=== PATIENT | female | born 1965 | race Caucasian/White ===

== ENCOUNTER 2022-09-05 13:00 | Inpatient (IN) | payer MEDICAID ==
[~2022-09-05] VITALS: Ht 153.7 cm; Wt 68.2 kg
[2022-09-05] MEDS ORDERED: normal saline 1000ML IV soln IVB ONE (13:15)
[2022-09-05 13:45] LABS: BASOPHILS # (AUTO) 0.1 X10'3 (0-0.2); BASOPHILS % (AUTO) 1.3 % (0-1); EOSINOPHILS # (AUTO) 0.3 X10'3 (0-0.9); EOSINOPHILS % (AUTO) 4.4 % (0-6); HEMOGLOBIN 8.1 g/dl (12.0-16.0); LYMPHOCYTES # (AUTO) 2.6 X10'3 (1.1-4.8); LYMPHOCYTES % (AUTO) 46.1 % (21-51); MEAN CORPUSCULAR HEMOGLOBIN 22.5 PG (27.0-31.0); MEAN CORPUSCULAR HGB CONC 30.2 g/dL (33.0-36.5); MEAN CORPUSCULAR VOLUME 74.6 FL (78-98); MEAN PLATELET VOLUME 6.6 FL (7.4-10.4); MONOCYTES # (AUTO) 0.9 X10'3 (0-0.9); MONOCYTES % (AUTO) 16.3 % (2-12); NEUTROPHILS # (AUTO) 1.8 X10'3 (1.8-7.7); NEUTROPHILS % (AUTO) 31.9 % (42-75); PLATELET COUNT 487 X10'3 (140-440); RED BLOOD COUNT 3.62 X10'6 (4.20-5.60); RED CELL DISTRIBUTION WIDTH 21.9 % (11.5-14.5); WHITE BLOOD COUNT 5.7 X10'3 (4.5-11.0)
[2022-09-05 14:04] LABS: TOTAL CELLS COUNTED 100
[2022-09-05 14:05] LABS: ALANINE AMINOTRANSFERASE 24 U/L (12-78); ALBUMIN 2.5 G/DL (3.4-5.0); ALBUMIN/GLOBULIN RATIO 0.7 (1.1-1.5); ALKALINE PHOSPHATASE 76 IU/L (46-116); ANION GAP 4 (8-16); ANISOCYTOSIS 3+; ASPARTATE AMINO TRANSFERASE 23 U/L (10-37); BILIRUBIN,TOTAL 0.2 MG/DL (0.1-1.0); BLOOD UREA NITROGEN 17 MG/DL (7-18); BUN/CREATININE RATIO 29.8 (6.6-38.0); CALCIUM 8.3 MG/DL (8.5-10.1); CHLORIDE 108 MMOL/L (99-107); CREATININE 0.57 MG/DL (0.40-0.90); GLUCOSE 94 MG/DL (70-104); HYPOCHROMASIA 1+; LARGE PLATELETS FEW; MICROCYTOSIS 1+; PLATELET ESTIMATE INCREASED; POTASSIUM 4.1 MMOL/L (3.5-5.1); SODIUM 142 MMOL/L (135-145); TOTAL CARBON DIOXIDE 30.2 MMOL/L (24-32); eGFR > 90 ML/MIN
[2022-09-05 14:08] LABS: ETHANOL < 0.010 GM/DL (0.0-0.010)
[2022-09-05 15:30] LABS: CLARITY,URINE CLOUDY (Clear); COLOR,URINE YELLOW (Yellow); GLUCOSE, URINE NEGATIVE (Neg); KETONES,URINE NEGATIVE (Neg); LEUKOCYTE ESTERASE ,URINE NEGATIVE (Neg); NITRITES, URINE POSITIVE (Neg); OCCULT BLOOD,URINE NEGATIVE (Neg); PH,URINE 6.5 (4.8-8.0); PROTEIN,URINE NEGATIVE (Neg); UROBILINOGEN,URINE 0.2 E.U/dL (0.2-1.0)
[2022-09-05 15:33] LABS: URINE AMPHETAMINE SCREEN NEGATIVE (Neg); URINE BARBITUATE SCREEN NEGATIVE (Neg); URINE BENZODIAZEPINES SCREEN NEGATIVE (Neg); URINE CANNABINOID SCREEN POSITIVE (Neg); URINE COCAINE SCREEN NEGATIVE (Neg); URINE METHADONE SCREEN NEGATIVE (Neg); URINE OPIATE SCREEN NEGATIVE (Neg); URINE PHENCYCLIDINE SCREEN NEGATIVE (Neg)
[2022-09-05 15:41] LABS: UA COLLECTION TYPE STRAIGHT CATH
[2022-09-05 15:48] LABS: SQUAMOUS EPITHELIAL CELL,UR MODERATE /LPF (FEW)
[2022-09-05 15:49] LABS: BACTERIA,URINE 4+ /HPF (Neg); MUCUS STRANDS FEW /LPF (Neg); RBC,URINE 0-2 /HPF (0-2)
[2022-09-05 15:50] LABS: WBC CLUMPS,URINE FEW /HPF (NEGATIVE)
[2022-09-05] MEDS ORDERED: CefTRIAXone 2gm/D5W 50ml BAG 50 ML IV ONE (15:50)
[2022-09-05] MEDS ORDERED: NO HOME MEDS (15:56)
[2022-09-05] MEDS ORDERED: HYDROcodone/acetaminophen 5mg/325mg tablet PO PRN (16:10)
[2022-09-05] MEDS ORDERED: magnesium hydroxide 30ml (MOM) UD suspension PO PRN (16:10)
[2022-09-05] MEDS ORDERED: ondansetron/PF 4mg/2ml inj IV PRN (16:10)
[2022-09-05] MEDS ORDERED: mag hydrox/Alum hydrox/simeth 30ml oral suspension PO PRN (16:10)
[2022-09-05] MEDS ORDERED: magnesium 4gm in 100ml NS 100 ML IV PRN (16:10)
[2022-09-05] MEDS ORDERED: acetaminophen 325mg tablet PO PRN (16:10)
[2022-09-05] MEDS ORDERED: potassium Cl 40MEQ/1/2NS 520ml 520 ML IV PRN (16:10)
[2022-09-05] MEDS ORDERED: potassium Cl 20 mEq SR tablet PO PRN ×2 (16:10)
[2022-09-05] MEDS: docusate sod 100mg capsule PO SCH (20:00)
[2022-09-05] MEDS: K and/or MAG REPLACEMENT MC SCH (21:40)
[2022-09-05] MEDS: enoxaparin 40mg/0.4ml syringe SQ SCH (21:41)
[2022-09-05] MEDS: HYDROcodone/acetaminophen 10/325mg tab PO PRN (22:12)
[2022-09-06 04:11] LABS: EOSINOPHILS # (AUTO) 0.2 X10'3 (0-0.9); MEAN CORPUSCULAR VOLUME 73.5 FL (78-98); WHITE BLOOD COUNT 6.6 X10'3 (4.5-11.0)
[2022-09-06 04:13] LABS: BASOPHILS # (AUTO) 0.1 X10'3 (0-0.2); BASOPHILS % (AUTO) 1.4 % (0-1); EOSINOPHILS % (AUTO) 3.6 % (0-6); HEMATOCRIT 27.5 % (35.0-45.0); HEMOGLOBIN 8.3 g/dl (12.0-16.0); LYMPHOCYTES # (AUTO) 2.9 X10'3 (1.1-4.8); LYMPHOCYTES % (AUTO) 44.5 % (21-51); MEAN CORPUSCULAR HEMOGLOBIN 22.3 PG (27.0-31.0); MEAN CORPUSCULAR HGB CONC 30.3 g/dL (33.0-36.5); MEAN PLATELET VOLUME 6.6 FL (7.4-10.4); MONOCYTES # (AUTO) 0.9 X10'3 (0-0.9); MONOCYTES % (AUTO) 13.1 % (2-12); NEUTROPHILS # (AUTO) 2.5 X10'3 (1.8-7.7); NEUTROPHILS % (AUTO) 37.4 % (42-75); PLATELET COUNT 452 X10'3 (140-440); RED BLOOD COUNT 3.74 X10'6 (4.20-5.60); RED CELL DISTRIBUTION WIDTH 21.7 % (11.5-14.5)
[2022-09-06 04:26] LABS: ALANINE AMINOTRANSFERASE 15 U/L (12-78); ALBUMIN/GLOBULIN RATIO 0.6 (1.1-1.5); ALKALINE PHOSPHATASE 79 IU/L (46-116); ANION GAP 4 (8-16); ASPARTATE AMINO TRANSFERASE 19 U/L (10-37); BILIRUBIN,TOTAL 0.1 MG/DL (0.1-1.0); BLOOD UREA NITROGEN 14 MG/DL (7-18); BUN/CREATININE RATIO 25.5 (6.6-38.0); CHLORIDE 111 MMOL/L (99-107); CREATININE 0.55 MG/DL (0.40-0.90); GLUCOSE 96 MG/DL (70-104); POTASSIUM 4.6 MMOL/L (3.5-5.1); SODIUM 144 MMOL/L (135-145); TOTAL CARBON DIOXIDE 28.6 MMOL/L (24-32); TOTAL PROTEIN 5.1 G/DL (6.4-8.2); eGFR > 90 ML/MIN
[2022-09-06 04:34] LABS: % IRON SATURATION 8 % (11-46); IRON 22 UG/DL (49-151); TOTAL IRON BINDING CAPACITY 281 UG/DL (259-388)
--- NOTE | 2022-09-06 06:10 | NUR ---
pt linnen and diaper changed. pt stated she feels much better now.
--- NOTE | 2022-09-06 07:07 | NUR ---
CALLS X2 TO [facility], UNABLE TO REACH RECIEIVING NURSE, CHARGE UNABLE TO TAKE REPORT
--- NOTE | 2022-09-06 07:23 | NUR ---
REPORT GIVEN TO SUE GARZAWRITER
[2022-09-06] MEDS: K and/or MAG REPLACEMENT MC SCH ×2 (08:00→20:00)
[2022-09-06] MEDS: docusate sod 100mg capsule PO SCH ×2 (08:07→20:16)
[2022-09-06 08:10] VITALS: BP 112/70
[2022-09-06] MEDS: CefTRIAXone/D5W-Rocephin 1gm 50 ML IV SCH (08:54)
--- NOTE | 2022-09-06 10:14 | NUR ---
Page sent to at approx 1000 - Patient 4022B, Geovanna Espino, new admit from ED, order for MRI , pt assessed by refrigeration technician unable to lay flat to obtain MRI, severe bilateral contractures. Rosa Pool LVN II @5199.
[2022-09-06] MEDS: HYDROcodone/acetaminophen 10/325mg tab PO PRN (12:48)
[2022-09-06 15:00] VITALS: BP 100/56
[2022-09-06 19:00] VITALS: BP 101/61
[2022-09-06] MEDS: enoxaparin 40mg/0.4ml syringe SQ SCH (20:18)
[2022-09-06] MEDS: acetaminophen 325mg tablet PO PRN (20:19)
--- NOTE | 2022-09-06 20:56 | NUR ---
Pt. is awake alert oriented appears to be in good spirits. Unable to move lower extremities. Able to feed self, moves arms and fingers well. Pt. is edentulous and ate 100% of pureed diet. Peripheral SL in left arm intact. Son visiting in room would like mother to go to LTAC. Advised to call to speak with Casemanager/jewelry bench worker regarding planned placement.
[2022-09-07 01:58] VITALS: BP 105/60
[2022-09-07 06:00] VITALS: BP 98/42
[2022-09-07 06:12] LABS: BASOPHILS # (AUTO) 0.1 X10'3 (0-0.2); BASOPHILS % (AUTO) 1.4 % (0-1); EOSINOPHILS # (AUTO) 0.3 X10'3 (0-0.9); EOSINOPHILS % (AUTO) 3.9 % (0-6); HEMATOCRIT 27.9 % (35.0-45.0); HEMOGLOBIN 8.6 g/dl (12.0-16.0); LYMPHOCYTES % (AUTO) 41.6 % (21-51); MEAN CORPUSCULAR HEMOGLOBIN 22.6 PG (27.0-31.0); MEAN CORPUSCULAR HGB CONC 30.8 g/dL (33.0-36.5); MEAN CORPUSCULAR VOLUME 73.5 FL (78-98); MEAN PLATELET VOLUME 6.8 FL (7.4-10.4); MONOCYTES # (AUTO) 0.8 X10'3 (0-0.9); MONOCYTES % (AUTO) 11.1 % (2-12); NEUTROPHILS # (AUTO) 3.1 X10'3 (1.8-7.7); PLATELET COUNT 462 X10'3 (140-440); RED CELL DISTRIBUTION WIDTH 21.3 % (11.5-14.5); WHITE BLOOD COUNT 7.3 X10'3 (4.5-11.0)
[2022-09-07 06:19] LABS: ALANINE AMINOTRANSFERASE 19 U/L (12-78); ALBUMIN 2.1 G/DL (3.4-5.0); ALBUMIN/GLOBULIN RATIO 0.6 (1.1-1.5); ALKALINE PHOSPHATASE 74 IU/L (46-116); ANION GAP 5 (8-16); ASPARTATE AMINO TRANSFERASE 22 U/L (10-37); BILIRUBIN,TOTAL 0.2 MG/DL (0.1-1.0); BLOOD UREA NITROGEN 14 MG/DL (7-18); BUN/CREATININE RATIO 21.9 (6.6-38.0); CALCIUM 8.1 MG/DL (8.5-10.1); CHLORIDE 109 MMOL/L (99-107); CREATININE 0.64 MG/DL (0.40-0.90); GLUCOSE 120 MG/DL (70-104); MAGNESIUM 1.9 MG/DL (1.5-2.4); POTASSIUM 4.4 MMOL/L (3.5-5.1); SODIUM 143 MMOL/L (135-145); TOTAL CARBON DIOXIDE 28.6 MMOL/L (24-32); TOTAL PROTEIN 5.5 G/DL (6.4-8.2); eGFR > 90 ML/MIN
--- NOTE | 2022-09-07 07:04 | NUR ---
Patient in room [facility]TH[facility] 4022. I have received report from GREG Lee and had the opportunity to ask questions and assume patient care.
[2022-09-07] MEDS: K and/or MAG REPLACEMENT MC SCH ×2 (07:53→19:28)
[2022-09-07] MEDS: CefTRIAXone/D5W-Rocephin 1gm 50 ML IV SCH (08:03)
[2022-09-07] MEDS: docusate sod 100mg capsule PO SCH ×2 (08:03→19:21)
[2022-09-07 10:00] VITALS: BP 109/66
[2022-09-07] MEDS ORDERED: GADOTERATE MEGLUMINE 7.5 MMOL/15 ML VIAL IV ONE (13:01)
--- NOTE | 2022-09-07 17:00 | NUR ---
Patient's LBM was 09/05/22. Offered MOM but patient refused states she would like to take it in the morning.
--- NOTE | 2022-09-07 18:24 | NUR ---
Problems reprioritized. Patient report given, questions answered & plan of care reviewed with GREG Lowe.
[2022-09-07] MEDS: acetaminophen 325mg tablet PO PRN (19:23)
[2022-09-07] MEDS: enoxaparin 40mg/0.4ml syringe SQ SCH (19:25)
[2022-09-07 22:00] VITALS: BP 118/64
[2022-09-08 02:00] VITALS: BP 99/53
[2022-09-08 06:00] VITALS: BP 93/54
[2022-09-08 06:04] LABS: BASOPHILS # (AUTO) 0.1 X10'3 (0-0.2); BASOPHILS % (AUTO) 1.3 % (0-1); EOSINOPHILS # (AUTO) 0.3 X10'3 (0-0.9); HEMATOCRIT 29.4 % (35.0-45.0); HEMOGLOBIN 8.9 g/dl (12.0-16.0); LYMPHOCYTES # (AUTO) 2.6 X10'3 (1.1-4.8); LYMPHOCYTES % (AUTO) 34.6 % (21-51); MEAN CORPUSCULAR HEMOGLOBIN 22.4 PG (27.0-31.0); MEAN CORPUSCULAR HGB CONC 30.4 g/dL (33.0-36.5); MEAN CORPUSCULAR VOLUME 73.5 FL (78-98); MEAN PLATELET VOLUME 7.1 FL (7.4-10.4); MONOCYTES # (AUTO) 0.9 X10'3 (0-0.9); MONOCYTES % (AUTO) 12.8 % (2-12); NEUTROPHILS # (AUTO) 3.5 X10'3 (1.8-7.7); NEUTROPHILS % (AUTO) 47.3 % (42-75); PLATELET COUNT 484 X10'3 (140-440); RED BLOOD COUNT 3.99 X10'6 (4.20-5.60); RED CELL DISTRIBUTION WIDTH 21.2 % (11.5-14.5); WHITE BLOOD COUNT 7.4 X10'3 (4.5-11.0)
[2022-09-08 06:17] LABS: ALANINE AMINOTRANSFERASE 21 U/L (12-78); ALBUMIN 2.2 G/DL (3.4-5.0); ALBUMIN/GLOBULIN RATIO 0.6 (1.1-1.5); ALKALINE PHOSPHATASE 68 IU/L (46-116); ANION GAP 5 (8-16); ASPARTATE AMINO TRANSFERASE 25 U/L (10-37); BILIRUBIN,TOTAL 0.2 MG/DL (0.1-1.0); BLOOD UREA NITROGEN 16 MG/DL (7-18); BUN/CREATININE RATIO 31.4 (6.6-38.0); CALCIUM 8.6 MG/DL (8.5-10.1); CHLORIDE 108 MMOL/L (99-107); CREATININE 0.51 MG/DL (0.40-0.90); GLUCOSE 101 MG/DL (70-104); MAGNESIUM 1.9 MG/DL (1.5-2.4); PHOSPHORUS 4.3 MG/DL (2.3-4.5); POTASSIUM 4.7 MMOL/L (3.5-5.1); SODIUM 141 MMOL/L (135-145); TOTAL CARBON DIOXIDE 27.9 MMOL/L (24-32); TOTAL PROTEIN 5.7 G/DL (6.4-8.2); eGFR > 90 ML/MIN
[2022-09-08 06:56] LABS: ANISOCYTOSIS 3+; MICROCYTOSIS 1+; PLATELET ESTIMATE INCREASED; POIKILOCYTOSIS FEW; POLYCHROMASIA 1+
[2022-09-08] MEDS: K and/or MAG REPLACEMENT MC SCH ×2 (07:42→19:19)
[2022-09-08] MEDS: CefTRIAXone/D5W-Rocephin 1gm 50 ML IV SCH (07:45)
[2022-09-08] MEDS: docusate sod 100mg capsule PO SCH ×2 (07:45→19:21)
--- NOTE | 2022-09-08 09:50 | NUR ---
Problems reprioritized. Patient report given, questions answered & plan of care reviewed with MATTHEW Albrecht. Per Refugio Thomas nursing program coordinator I am handing off my patient load to MATTHEW Albrecht and I am now resource nurse.
--- NOTE | 2022-09-08 09:57 | NUR ---
Patient in room [facility]TH[facility] 4022. I have received report from GREG Greenfield and had the opportunity to ask questions and assume patient care.
[2022-09-08 10:00] VITALS: BP 97/58
--- NOTE | 2022-09-08 15:13 | NUR ---
I agree with the Physical Assessment conducted and charted by Trena Cook Addendum: 09/08/22 at 1514 by Gin Gee RN Amended: Links added.
[2022-09-08 18:00] VITALS: BP 112/70
--- NOTE | 2022-09-08 18:10 | NUR ---
Patient in room [facility]TH[facility] 4022. I have received report from GREG Albrecht and had the opportunity to ask questions and assume patient care.
--- NOTE | 2022-09-08 18:22 | NUR ---
Problems reprioritized. Patient report given, questions answered & plan of care reviewed with GREG Corona.
[2022-09-08] MEDS: enoxaparin 40mg/0.4ml syringe SQ SCH (19:21)
[2022-09-08 22:00] VITALS: BP 103/56
[2022-09-09 06:00] VITALS: BP 100/53
--- NOTE | 2022-09-09 06:19 | NUR ---
Problems reprioritized. Patient report given, questions answered & plan of care reviewed with GREG Greenfield.
--- NOTE | 2022-09-09 06:25 | NUR ---
Patient in room [facility]TH[facility] 4022. I have received report from GREG Corona and had the opportunity to ask questions and assume patient care.
[2022-09-09 06:58] LABS: BASOPHILS # (AUTO) 0.1 X10'3 (0-0.2); BASOPHILS % (AUTO) 1.4 % (0-1); EOSINOPHILS # (AUTO) 0.3 X10'3 (0-0.9); EOSINOPHILS % (AUTO) 3.9 % (0-6); HEMATOCRIT 28.3 % (35.0-45.0); HEMOGLOBIN 8.7 g/dl (12.0-16.0); LYMPHOCYTES # (AUTO) 3.1 X10'3 (1.1-4.8); LYMPHOCYTES % (AUTO) 40.3 % (21-51); MEAN CORPUSCULAR HEMOGLOBIN 22.4 PG (27.0-31.0); MEAN CORPUSCULAR HGB CONC 30.6 g/dL (33.0-36.5); MEAN CORPUSCULAR VOLUME 73.3 FL (78-98); MEAN PLATELET VOLUME 7.4 FL (7.4-10.4); MONOCYTES # (AUTO) 1.1 X10'3 (0-0.9); MONOCYTES % (AUTO) 14.9 % (2-12); NEUTROPHILS % (AUTO) 39.5 % (42-75); PLATELET COUNT 519 X10'3 (140-440); RED BLOOD COUNT 3.87 X10'6 (4.20-5.60); RED CELL DISTRIBUTION WIDTH 21.2 % (11.5-14.5); WHITE BLOOD COUNT 7.7 X10'3 (4.5-11.0)
[2022-09-09 07:26] LABS: ALANINE AMINOTRANSFERASE 26 U/L (12-78); ALBUMIN 2.3 G/DL (3.4-5.0); ALBUMIN/GLOBULIN RATIO 0.7 (1.1-1.5); ALKALINE PHOSPHATASE 71 IU/L (46-116); ANION GAP 6 (8-16); ASPARTATE AMINO TRANSFERASE 31 U/L (10-37); BILIRUBIN,TOTAL 0.2 MG/DL (0.1-1.0); BLOOD UREA NITROGEN 24 MG/DL (7-18); CALCIUM 8.7 MG/DL (8.5-10.1); CHLORIDE 105 MMOL/L (99-107); GLUCOSE 101 MG/DL (70-104); MAGNESIUM 2.2 MG/DL (1.5-2.4); PHOSPHORUS 5.1 MG/DL (2.3-4.5); POTASSIUM 4.9 MMOL/L (3.5-5.1); SODIUM 139 MMOL/L (135-145); TOTAL CARBON DIOXIDE 27.9 MMOL/L (24-32); TOTAL PROTEIN 5.8 G/DL (6.4-8.2); eGFR > 90 ML/MIN
[2022-09-09] MEDS: K and/or MAG REPLACEMENT MC SCH ×2 (08:00→19:48)
[2022-09-09] MEDS: CefTRIAXone/D5W-Rocephin 1gm 50 ML IV SCH (08:07)
[2022-09-09] MEDS: docusate sod 100mg capsule PO SCH ×2 (08:08→19:48)
[2022-09-09 11:00] VITALS: BP 93/58
[2022-09-09 18:00] VITALS: BP 111/61
--- NOTE | 2022-09-09 18:21 | NUR ---
Problems reprioritized. Patient report given, questions answered & plan of care reviewed with RGEG Corona.
--- NOTE | 2022-09-09 18:38 | NUR ---
Patient in room [facility]TH[facility] 4022. I have received report from GREG Greenfield and had the opportunity to ask questions and assume patient care.
[2022-09-09] MEDS: enoxaparin 40mg/0.4ml syringe SQ SCH (19:52)
[2022-09-09 22:00] VITALS: BP 116/56
--- NOTE | 2022-09-09 22:55 | NUR ---
DR. ORTEGA WAS NOTIFIED REGARDING PT.VOMITING WHICH LOOKED COFFEE GROUND COLOR.SHE ORDER HEMOGRAM,BLOOD STOOL SAMPLE AND LOVENOX ON HOLD.HH CAME BACK 8.1WE WILL CONTINUE WITH PT.CAME
[2022-09-09 23:46] LABS: HEMATOCRIT 25.8 % (35.0-45.0); HEMOGLOBIN 8.1 g/dl (12.0-16.0); MEAN CORPUSCULAR HEMOGLOBIN 22.9 PG (27.0-31.0); MEAN CORPUSCULAR HGB CONC 31.5 g/dL (33.0-36.5); MEAN CORPUSCULAR VOLUME 72.7 FL (78-98); MEAN PLATELET VOLUME 6.7 FL (7.4-10.4); PLATELET COUNT 512 X10'3 (140-440); RED BLOOD COUNT 3.55 X10'6 (4.20-5.60); RED CELL DISTRIBUTION WIDTH 20.7 % (11.5-14.5); WHITE BLOOD COUNT 9.8 X10'3 (4.5-11.0)
[2022-09-10 06:11] LABS: BASOPHILS # (AUTO) 0.1 X10'3 (0-0.2); BASOPHILS % (AUTO) 0.7 % (0-1); EOSINOPHILS # (AUTO) 0.2 X10'3 (0-0.9); EOSINOPHILS % (AUTO) 2.1 % (0-6); HEMOGLOBIN 7.9 g/dl (12.0-16.0); LYMPHOCYTES # (AUTO) 2.9 X10'3 (1.1-4.8); LYMPHOCYTES % (AUTO) 26.3 % (21-51); MEAN CORPUSCULAR HEMOGLOBIN 22.1 PG (27.0-31.0); MEAN CORPUSCULAR HGB CONC 30.4 g/dL (33.0-36.5); MEAN PLATELET VOLUME 6.9 FL (7.4-10.4); MONOCYTES # (AUTO) 1.5 X10'3 (0-0.9); MONOCYTES % (AUTO) 13.7 % (2-12); NEUTROPHILS # (AUTO) 6.3 X10'3 (1.8-7.7); NEUTROPHILS % (AUTO) 57.2 % (42-75); PLATELET COUNT 524 X10'3 (140-440); RED BLOOD COUNT 3.56 X10'6 (4.20-5.60); RED CELL DISTRIBUTION WIDTH 20.7 % (11.5-14.5)
[2022-09-10 06:12] LABS: ALANINE AMINOTRANSFERASE 28 U/L (12-78); ALBUMIN 2.2 G/DL (3.4-5.0); ALBUMIN/GLOBULIN RATIO 0.6 (1.1-1.5); ALKALINE PHOSPHATASE 63 IU/L (46-116); ANION GAP 6 (8-16); ASPARTATE AMINO TRANSFERASE 31 U/L (10-37); BILIRUBIN,TOTAL 0.3 MG/DL (0.1-1.0); BLOOD UREA NITROGEN 25 MG/DL (7-18); BUN/CREATININE RATIO 43.1 (6.6-38.0); CALCIUM 8.1 MG/DL (8.5-10.1); CHLORIDE 105 MMOL/L (99-107); CREATININE 0.58 MG/DL (0.40-0.90); GLUCOSE 94 MG/DL (70-104); MAGNESIUM 2.1 MG/DL (1.5-2.4); PHOSPHORUS 3.6 MG/DL (2.3-4.5); POTASSIUM 4.4 MMOL/L (3.5-5.1); SODIUM 138 MMOL/L (135-145); TOTAL CARBON DIOXIDE 27.4 MMOL/L (24-32); TOTAL PROTEIN 5.6 G/DL (6.4-8.2); eGFR > 90 ML/MIN
--- NOTE | 2022-09-10 06:39 | NUR ---
Problems reprioritized. Patient report given, questions answered & plan of care reviewed with GREG Cartwright.
[2022-09-10 06:41] LABS: ANISOCYTOSIS 3+; ELLIPTOCYTES FEW; HYPOCHROMASIA 1+; MICROCYTOSIS 1+; PLATELET ESTIMATE INCREASED; POLYCHROMASIA 1+
--- NOTE | 2022-09-10 06:42 | NUR ---
Patient in room [facility]TH[facility] 4022. I have received report from Chloe and had the opportunity to ask questions and assume patient care.
[2022-09-10 06:51] VITALS: BP 100/53
[2022-09-10] MEDS: K and/or MAG REPLACEMENT MC SCH ×2 (08:00→20:00)
[2022-09-10] MEDS: CefTRIAXone/D5W-Rocephin 1gm 50 ML IV SCH (08:56)
[2022-09-10] MEDS: docusate sod 100mg capsule PO SCH ×2 (08:56→20:17)
[2022-09-10 10:00] VITALS: BP 109/65
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
[2022-09-10 18:00] VITALS: BP 99/60
--- NOTE | 2022-09-10 18:32 | NUR ---
Problems reprioritized. Patient report given, questions answered & plan of care reviewed with Deja.
[2022-09-10 22:00] VITALS: BP 105/75
[2022-09-11 02:00] VITALS: BP 100/55
[2022-09-11 06:00] VITALS: BP 98/51
--- NOTE | 2022-09-11 06:43 | NUR ---
report given to Kandy GARZA
[2022-09-11] MEDS: K and/or MAG REPLACEMENT MC SCH ×2 (08:00→20:00)
[2022-09-11] MEDS: CefTRIAXone/D5W-Rocephin 1gm 50 ML IV SCH (09:11)
[2022-09-11] MEDS: enoxaparin 40mg/0.4ml syringe SQ SCH ×2 (09:12→20:06)
[2022-09-11] MEDS: docusate sod 100mg capsule PO SCH ×2 (09:12→20:05)
[2022-09-11 10:00] VITALS: BP 91/56
[2022-09-11] MEDS: acetaminophen 325mg tablet PO PRN (15:51)
[2022-09-11 18:00] VITALS: BP 93/52
[2022-09-11 22:00] VITALS: BP 108/58
[2022-09-12] MEDS: K and/or MAG REPLACEMENT MC SCH ×2 (08:00→20:00)
[2022-09-12] MEDS: CefTRIAXone/D5W-Rocephin 1gm 50 ML IV SCH (10:10)
[2022-09-12] MEDS: docusate sod 100mg capsule PO SCH ×2 (10:10→20:44)
[2022-09-12] MEDS: enoxaparin 40mg/0.4ml syringe SQ SCH (10:11)
[2022-09-12 16:02] VITALS: BP 104/68
[2022-09-12 19:03] VITALS: BP 122/68
[2022-09-12 22:14] VITALS: BP 103/56
[2022-09-13 06:00] VITALS: BP 97/51
--- NOTE | 2022-09-13 06:25 | NUR ---
Problems reprioritized. Patient report given, questions answered & plan of care reviewed with GREG EVANGELISTA AND HUGH REESE RN.
--- NOTE | 2022-09-13 07:07 | NUR ---
Patient in room [facility]TH[facility] 4022. I have received report from Shakila GARZA and had the opportunity to ask questions and assume patient care.
[2022-09-13] MEDS: K and/or MAG REPLACEMENT MC SCH (08:00)
[2022-09-13] MEDS: CefTRIAXone/D5W-Rocephin 1gm 50 ML IV SCH (08:05)
[2022-09-13] MEDS: docusate sod 100mg capsule PO SCH (08:40)
--- NOTE | 2022-09-13 10:24 | NUR ---
Attempted to call report at [facility] nursing and rehab desk staff answered and I was placed on hold, they were unable to find nurse for report. Addendum: 09/13/22 at 1058 by Rhea oFy LVN Report called again and provided to Suzi GARZA, all questions anticipated and addressed
--- NOTE | 2022-09-13 10:45 | NUR ---
Patient is stable and appropriate for transfer to [facility]. PIV removed, cannula intact, patient tolerated well. Brief applied for transfer, rossy care performed. Patient is accepting of transfer and is aware that she is going to [place], aaron at bedside and aware of plan of care. [facility] transport arrived, patient assisted to [facility] total assist via hospital staff. Patient assisted out of facility via [facility] assisted by transport staff accompanied by her son.
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
== END 2022-09-13 11:48 | DRG 43 ==
LOC: EEVIPCON 13:01 → ER 13:01 → ED HOLD 16:17 → ORTHO 4S 09-06 07:36
PROVIDERS: ADMIT Family Medicine; ATTEND Family Medicine
DX: G35 Multiple sclerosis (principal); G93.41 Metabolic encephalopathy; F03.90 Unspecified dementia, unspecified severity, without behavioral disturbance, psychotic disturbance, mood disturbance, and anxiety; G93.89 Other specified disorders of brain; R62.7 Adult failure to thrive; D50.9 Iron deficiency anemia, unspecified; B96.20 Unspecified Escherichia coli [E. coli] as the cause of diseases classified elsewhere; R53.81 Other malaise; E86.0 Dehydration; N39.0 Urinary tract infection, site not specified; Z80.8 Family history of malignant neoplasm of other organs or systems; Z82.49 Family history of ischemic heart disease and other diseases of the circulatory system; Z87.891 Personal history of nicotine dependence; Z90.710 Acquired absence of both cervix and uterus; Z99.3 Dependence on wheelchair; Z59.00 Homelessness unspecified; Z68.28 Body mass index [BMI] 28.0-28.9, adult; Z79.899 Other long term (current) drug therapy
CPT/HCPCS: 36415; 70450; 70553; 71045; 80053; 80305; 80320; 81001; 82140; 83540; 83550; 83605; 83735; 84100; 85007; 85008; 85025; 85027; 87040; 87077; 87081; 87088; 87186; 92508; 92616; 96360; 97116; 97161; 97530; 99285; A4353; A6250; A9575; G0378; J0696; J1650; J2405; J7030